=== PATIENT | female | born 1960 | race Caucasian/White ===

== ENCOUNTER 2016-08-10 04:28 | Emergency (ER) | payer OTHER ==
--- NOTE | 2016-08-10 08:36 | DIAGNOSTIC IMAGING REPORT ---
PROCEDURE: CT ABDOMEN/PELVIS W/O CONTRAST INDICATION: LEFT GROIN PAIN, initial encounter TECHNIQUE: Noncontrast axial images were obtained of the entire abdomen and pelvis with sagittal and coronal reformations. COMPARISON: None. FINDINGS: ABDOMEN: Lung base are clear. Heart size is normal. Liver, gallbladder, pancreas, spleen, adrenal glands and kidneys are unremarkable. Mild atherosclerosis of the aorta. Nonspecific bowel gas pattern. PELVIS: Moderate stool. Appendix not visualized. The uterus, adnexa and bladder are unremarkable. There is no pelvic mass, inflammatory changes or free fluid. Calcified injection granuloma in the right buttock. No evidence of a hernia. Moderate degenerative changes of the spine. IMPRESSION: 1. Moderate stool 2. Results discussed with Dr. Nicholas All CT scans at this facility use dose modulation, iterative reconstruction, and/or weight-based dosing when appropriate to reduce radiation dose to as low as reasonably achievable.
--- NOTE | 2016-08-10 08:40 | ED NURSING NOTES ---
Clinical Report - Nurses [facility] [address] [place] [address] 08/10/2016 4:30 Patient: KISHA WELLS TRIAGE Triage time 04:39. Acuity: LEVEL 3. Chief Complaint: PELVIC PAIN. ( Pt was taking high blood pressure meds and stopped taking them.). --04:48 Paramjit Catherine R.N. 04:39 08/10/16. BP: 158/109. HR: 99. RR: 22. O2 saturation: 100%. Temp: 97.9 F. Pain level now 03/05. --04:48 Paramjit Catherine R.N. Weight: 48.5 kg. Height/Length: 60 inches. BMI: 20.9. --04:39 Paramjit Catherine R.N. Medications None. --04:46 Paramjit Catherine R.N. Medication/allergy information source: the patient. --04:48 Paramjit Catherine R.N. Allergies No Known Drug Allergy. --04:46 Paramjit Catherine R.N. History Arrived by private vehicle. Historian: patient. Unaccompanied. Primary physician (Roque Gamez). This started today. ( Pt came in with left sided groin pain that radiates down the left leg and into the left shoulder. Pt stated she has had these pains in the past, but not to this extent. Pt does not have pain on palpation or weight bearing. There is no bruising and the pt denies any injury to the left leg.). Treatment ENVIRONMENTAL SPECIALIST: None. PAST MEDICAL HX: Immunizations: up-to-date. SOCIAL HX: Heavy tobacco smoker (cigarette)- less than 1 pack per day (30yrs). Occasional alcohol use; consumes beer occasionally. History of occasional drug use: marijuana. --04:48 Paramjit Catherine R.N. PROBLEMS: Hypertension. --04:47 Paramjit Catherine R.N. Interventions ID band on patient. To treatment room. --04:48 Paramjit Catherine R.N. PHYSICAL ASSESSMENT ( Pt is having left sided groin pain that radiates down the left leg. Pt is having left leg pain with a strong pedal pulse. The pedal pulse has been marked. Pt stated she is having pain about every 20 seconds. Pt is also saying it radiates up the left shoulder.). GENERAL / NEURO / PSYCH: Alert. Oriented X 4. Appears in pain and anxious. HEENT: Mucous membranes are pink. RESPIRATORY: Respirations not labored. Breath sounds within normal limits. CVS: Normal heart rate and rhythm. Capillary refill less than 2 seconds. GI / : Abdomen soft and nontender. Bowel sounds within normal limits. No vaginal bleeding. No vaginal discharge. No genital lesions noted. SKIN: Skin is warm and dry. --04:50 Paramjit Catherine R.N. NURSING PROGRESS NOTES Patient gowned. Head of bed elevated 30 degrees. Reassurance given. Two patient identifiers checked. Call light placed in reach. Side rails up x 1. Bed placed in lowest position. Brakes of bed on. ( MD is at bedside.). --04:50 Paramjit Catherine R.N. ( Son is at bedside. Pt has requested pain meds. MD informed.). --06:04 Paramjit Catherine R.N. 06:21 08/10/2016 Site #1 started via IV in the right antecubital space with an 20g angiocath, with aseptic technique and good blood return; one attempt. Blood drawn: rainbow set. Labeled in the presence of the patient and sent to the lab. Saline lock flushed with 10 mL saline. --06:21 Paramjit Catherine R.N. 06:24 08/10/2016 Morphine IVP 4 mg given over 1 minute(s) via site #1. Allergies verified, confirmed 5 rights and sedative warning given to the patient. IV patency established. IV site checked: no pain, redness, or swelling. IV flushed thoroughly pre- and post-medication administration. IVP given by RN. --06:24 Paramjit Catherine R.N. 06:25 08/10/16. BP: 156/109. HR: 85. RR: 22. O2 saturation: 98%. Pain level now 7/10. --06:26 Paramjit Catherine R.N. ( US is present in the room.). --07:05 Paramjit Catherine R.N. 08:12 08/10/16. BP: 124/74 (regular adult cuff) taken on the left arm, while sitting. HR: 84. RR: 18. O2 saturation: 100% on room air. Temp: 98.3 F. Pain level now: 8/10. Additional comments: Pain on left groin, intermittent sharp pain that takes breath away. --08:15 Anneliese Hernandez R.N. 08:15 08/10/16. ( Patient just returned from CT, she says pain is coming back, intermittently). --08:15 Anneliese Hernandez R.N. 08:21 08/10/2016 Morphine IVP Response: no adverse reaction pain is worsening. Symptoms have gotten worse. The patient feels worse. ED physician notified. --08:36 Anneliese Hernandez R.N. 08:53 08/10/2016 Morphine IVP 8 mg given over 2 minute(s) via site #1. Allergies verified, confirmed 5 rights and sedative warning given to the patient. IV patency established. IV site checked: no pain, redness, or swelling. IV flushed thoroughly pre- and post-medication administration. IVP given by RN. --08:53 Anneliese Hernandez R.N. 08:53 08/10/16. BP: 132/108 (regular adult cuff) taken on the left arm, while lying. HR: 86. RR: 18 (regular). O2 saturation: 97% on room air. Pain level now: 02/03. --08:54 Anneliese Hernandez R.N. 08:54 08/10/16. --08:54 Anneliese Hernandez R.N. 08:54 08/10/16. Patient gowned. Head of bed elevated. Reassurance given. Two patient identifiers checked. Call light placed in reach. Side rails up x 2. Bed placed in lowest position. Brakes of bed on. --08:54 Anneliese Hernandez R.N. 09:44 08/10/16. BP: 118/98 (regular adult cuff) taken on the left arm, while sitting. HR: 88. RR: 16 (regular). O2 saturation: 100% on room air. Temp: 98.4 F (oral). Pain level now: 12/03. --09:46 Anneliese Hernandez R.N. 09:46 08/10/16. ( Patients son on his way to give patient ride home. Pain has improved to a 12/03). --09:46 Anneliese Hernandez R.N. 09:47 08/10/2016 Morphine IVP Response: no adverse reaction pain is improving. Symptoms have improved the patient feels better. --09:47 Anneliese Hernandez R.N. 10:10 08/10/2016 Site #1 removed upon discharge. Bandaid applied. --10:10 Anneliese Hernandez R.N. DISPOSITION / DISCHARGE 10:08/10/16. Condition at departure: improved. No learning barriers present. Discharge instructions provided and reviewed with the patient. Reviewed medication(s) side effects information. Prescription(s) given to the patient. Patient verbalized understanding. Written instructions provided in Italian. No note given. The patient was discharged by the physician. She was discharged home and accompanied by son. She left the Emergency Department ambulatory and via private vehicle. Driving (son). --10:09 Anneliese Hernandez R.N. 10:04 08/10/16. BP: 140/77 (regular adult cuff) taken on the left arm, while sitting. HR: 71 (regular). RR: 16 (regular). O2 saturation: 98% on room air. Temp: 98.4 F (oral). Pain level now: 12/03. --10:09 Anneliese Hernandez R.N. Departure time: 10:Aug 10 2016. --10:25 Anneliese Hernandez R.N. Locked/Released at 08/10/2016 10:26 by Anneliese Hernandez R.N.
--- NOTE | 2016-08-10 08:40 | ED CLINICAL REPORT ---
Clinical Report - Physicians/Mid Levels [facility] [address] [place] [address] 08/10/2016 4:30 Patient: KISHA WELLS Arrived- By private vehicle. Historian- patient. HISTORY OF PRESENT ILLNESS Chief Complaint: LOWER EXTREMITY PAIN and ; ;(left). This started today and is still present (staying the same). It was abrupt in onset and has been intermittent but is not gone now. Severity is described as being severe. The quality is noted to be sharp and aching. No radiation. Not worsened by anything and relieved by anything. The patient has not had redness. No swelling, bladder dysfunction, bowel dysfunction, sensory loss or motor loss. ( reports no hx of DVT/PE). Patient denies an injury. Similar symptoms previously: None. Recent medical care: Not recently seen/assessed. REVIEW OF SYSTEMS No cough, chest pain, difficulty breathing, fever or skin rash. No neck pain, back pain, headache, blurred vision or sore throat. No abdominal pain. All systems otherwise negative, except as recorded above. PAST HISTORY See nurses notes. Medications: None. Allergies: No Known Drug Allergy. SOCIAL HISTORY Smoker- current status unknown. No alcohol use or drug use. No recent travel. Is a local resident. ADDITIONAL NOTES The nursing notes have been reviewed. PHYSICAL EXAM Vital Signs: 08/10/2016 09:44 BP: 118/98. HR: 88. RR: 16. O2 saturation: 100%. Temp: 98.4 F. Pain level now: 7/10. Oxygen saturation normal. Appearance: Alert. Oriented X3. No acute distress. Eyes: Pupils equal, round and reactive to light. Eyes normal inspection. ENT: Ears normal. Nose normal. Pharynx normal. Neck: Normal inspection. Neck supple. CVS: Normal heart rate and rhythm. Heart sounds normal. Respiratory: No respiratory distress. Breath sounds normal. Abdomen: Soft and nontender. No organomegaly. Back: Normal inspection. No tenderness. ROM normal. Skin: Skin intact. Skin warm and dry. Normal skin color. Normal skin turgor. Extremities: Lower extremities exhibit normal ROM. No lower extremity edema. Extremities otherwise negative. Gait: Normal gait. Neuro, Vascular and Tendons: No pulse deficit present. Neuro: Oriented X 3. No motor deficit. No sensory deficit. LABS, X-RAYS, AND EKG Abdominal CT: Normal liver, spleen and gallbladder. No mass. No free fluid. No bony lesion. Study type: abdomen and pelvis. Abdominal CT performed without contrast. The study was independently viewed by me, interpreted by the radiologist and discussed with the radiologist. Lower Extremity Sonography: Negative exam. No compression abnormality noted. Vessels patent. Augmented flow present. no DVT or dissection. Study type: utilized duplex and color Doppler sonography. The exam was performed by a educational technician. Laboratory Tests: CBC w Diff: (DEMETRIS: 08/10/2016 06:27) ( MsgRcvd 08/10/2016 06:47) Final results Test Result Flag Units (Reference) WHITE BLOOD COUNT 11.1 K/uL (4.5-11.5) RED BLOOD COUNT 4.31 M/uL (4.00-5.20) HEMOGLOBIN 14.1 gm/dL (12.0-16.0) HEMATOCRIT 41.4 % (36.0-46.0) MEAN CELL VOLUME 96 fL (80-100) MEAN CORPUSCULAR HGB 33 pg (26-34) MEAN CORPUSCULAR HGB CONC 34 g/dL (31-37) RED CELL DISTRIBUTION WIDTH 13.9 % (11.6-14.8) PLATELET COUNT 467 H K/uL (150-400) NEUTROPHIL % 73.5 % (50-75) LYMPH % 19.5 L % (25-40) MONO % 4.4 % (3-14) EOSINOPHIL % 2.0 % (0-4) BASOPHIL % 0.6 % (0-2) PT with INR: (DEMETRIS: 08/10/2016 06:27) ( MsgRcvd 08/10/2016 06:57) Final results Test Result Flag Units (Reference) INR 0.9 (0.8-1.2) Low Intensity Therapy: INR 1.5-2.0 PT range 18.5-23.1Mod.Intensity Therapy: INR 2.0-3.0 PT range 23.1-31.5High Intensity Therapy: INR 2.5-3.5 PT range 27.4-35.5High Intensity Therapy 2: INR 3.0-4.0 PT range 31.5-39.3 APTT 33 SECONDS (24-34) D-DIMER QUANTITATIVE < 0.27 L ug/mLFEU (0.27-0.52) The primary value of this quantitative assay relates toits negative predictive value (i.e. exclusion) of pulmonaryembolism/deep vein thrombosis/DIC.Elevated levels of d-dimer may also occur with:, age, cancer, inflammation, liver disease,post-op, infection, hematoma, coronary disease, peripheralarteriopathy, bleeding disorders and thrombolytic treatment.Results should be correlated with other clinical andradiological data.Testing Methodology: Latex Immunoassay CMP: (DEMETRIS: 08/10/2016 06:27) ( MsgRcvd 08/10/2016 06:58) Final results Test Result Flag Units (Reference) GLUCOSE 106 mg/dL (70-110) BUN 10 mg/dL (7-18) CREATININE 0.5 L mg/dL (0.6-1.3) Estimated GFR >60 mL/min Estimated GFR- >60 mL/min Note: Persistent reduction over 3 months in eGFR<60 mL/min/1.73 m2 defines CKD. Patients with eGFR values>=60 mL/min/1.73 m2 may also have CKD if evidence ofpersistent proteinuria. Additional information may be foundat www.[email or web address].org. SODIUM 141 mmol/L (136-145) POTASSIUM 4.1 mmol/L (3.5-5.1) CHLORIDE 105 mmol/L (98-107) CARBON DIOXIDE 25 mmol/L (21-32) CALCIUM 9.1 mg/dL (8.5-10.1) TOTAL PROTEIN 7.3 g/dL (6.4-8.2) ALBUMIN 4.2 g/dL (3.3-5.0) BILIRUBIN, TOTAL 0.3 mg/dL (0.0-1.0) ALKALINE PHOSPHATASE 66 U/L (46-116) AST (SGOT) 23 U/L (15-37) ALT (SGPT) 31 U/L (12-78) . PROGRESS AND PROCEDURES Course of Care: the patient is a pleasant 56 her old female presenting for evaluation of left looks from the pain. The patient's sinus symptoms are concerning for DVT or possibly dissection. The patient did not have any acute gross neurovascular compromise on examination. The medication and laboratory studies including ultrasound had been ordered. Patient is agreeable to the treatment and plan. Other considerations are urinary tract infectionand renal colic. Patient's workup does not show any acute abnormalities. White blood cell count is noted be normal at 11.1. Hemoglobin and hematocrit are within normal limits. D-dimer is also negative along with the patient's negative ultrasound. Did not feel patient has acute DVT. Because of the patient's normal d-dimer, would also make aortic dissection extremely unlikely. Patient is also as a normal arterial ultrasound. Patient was reevaluated and updated on her laboratory tests and imaging. Because of the patient's persistent pain, another dose of pain medication as well as a CT scan of the abdomen and pelvis were ordered. Patient be evaluated for any possible intra-abdominal causes for the patient's pain including hernia is wall. Would also be considered small bowel obstruction. Workup does not show any acute artery maladies. Mild/moderate amount of stool noted however no other acute abnormalities noted on patient's examination/workup and discussion with the patient in regards to her workup, diagnosis, and plan of care. Return precautions provided. All questions have been answered. The patient is agreeable to the treatment and plan. Patient be managed conservatively as an outpatient. Encourage patient to follow up with her primary care doctor. Disposition: Discharged. Condition: good. CLINICAL IMPRESSION Acute left thigh pain. Acute left lower quadrant abdominal pain. INSTRUCTIONS Warnings: GENERAL WARNINGS: Return or contact your physician immediately if your condition worsens or changes unexpectedly, if not improving as expected, or if other problems arise. Specifically return if pain, vomiting, bleeding, breathing difficulty or fever. Your Current Medications: CONTINUE TAKING THE FOLLOWING MEDICATIONS: None*. Prescription Medications: Percocet 5 mg/325 mg: take 1 tablet orally every 6 hours as needed for pain. Dispense twelve (12). No refill. Substitution is permissible. (recheck today's concerns) Follow-up: Return to the emergency department as needed. Follow up with your doctor in three days. Reason for referral: recheck today's concerns. Summary of care provided to patient via paper. Screening today revealed the patient's blood pressure to be in the normal range. The patient should follow up with a primary care provider for blood pressure management. Understanding of the discharge instructions verbalized by patient. (Electronically signed by Derrick Nicholas Dr. 08/10/2016 10:02)
--- NOTE | 2016-08-10 08:41 | ED ORDER SUMMARY ---
..... Patient: KISHA WELLS OrderSheet [facility] VisitID: [id number] [address] [place] [address] 56y, F Registration Date/Time: 08/10/2016 ORDER SHEET Weight: 48.5 kg Allergies: No Known Drug Allergy GENERAL ORDERS: US Venous Left Urgent (06:13 08/10/2016 Hari Miller) (Ack 6:18 AMcQuoid ER Tech1) (7:04 TLewis R.N.) CBC w Diff Urgent (06:14 08/10/2016 Hari Miller) (Ack 6:18 AMcQuoid ER Tech1) (6:21 TLewis R.N.) CMP Urgent (06:14 08/10/2016 Hari Miller) (Ack 6:18 AMcQuoid ER Tech1) (6:21 TLewis R.N.) PT with INR Urgent (06:14 08/10/2016 Hari Miller) (Ack 6:18 AMcQuoid ER Tech1) (6:21 TLewis R.N.) PTT Urgent (06:14 08/10/2016 Hari Miller) (Ack 6:18 AMcQuoid ER Tech1) (6:21 TLewis R.N.) D-Dimer Urgent (06:14 08/10/2016 Hari Miller) (Ack 6:18 AMcQuoid ER Tech1) (6:21 TLewis R.N.) US Art Low Ext Doppler Left Urgent (07:02 08/10/2016 Hari Miller) (7:04 TLewis R.N.) CT Abd/Pel wo Cont Urgent (07:34 08/10/2016 Hari Miller) (Ack 8:03 Twan) (8:12 JSanders R.N.) UA-Culture if indicated Urgent (07:34 08/10/2016 Hari Miller) (Ack 8:03 Twan) (8:12 JSanders R.N.) MEDICATION ORDERS: IV FLUIDS: Morphine IV 4 mg (HIGH ALERT MEDICATION, NOW) (04:46 08/10/2016 Hari Miller) (Cancelled: incorrect input4:[address] Morphine IV 4 mg (HIGH ALERT MEDICATION, NOW) (06:14 08/10/2016 Hari Miller) (6:24 Tereso R.N.) IV Saline Lock (06:14 08/10/2016 Hari Miller) (6:21 Tereso R.N.) Morphine IV 8 mg (HIGH ALERT MEDICATION, NOW) (08:36 08/10/2016 Hari Miller) (8:53 Gracy R.NVirgilio) ORDER SHEET NOTES: [Electronically signed by Derrick Nicholas Dr. (10:02 08/10/2016)] [Electronically signed by Anneliese Hernandez R.N. (10:08/10/2016)] [Electronically locked/signed by Anneliese Hernandez R.N. (10:08/10/2016)]
--- NOTE | 2016-08-10 08:41 | ED ORDER SUMMARY ---
..... Patient: KISHA WELLS OrderSheet [facility] VisitID: [id number] [address] [place] [address] 56y, F Registration Date/Time: 08/10/2016 ORDER SHEET Weight: 48.5 kg Allergies: No Known Drug Allergy GENERAL ORDERS: US Venous Left Urgent (06:13 08/10/2016 Hari Miller) (Ack 6:18 AMcQuoid ER Tech1) (7:04 TLewis R.N.) CBC w Diff Urgent (06:14 08/10/2016 Hari Miller) (Ack 6:18 AMcQuoid ER Tech1) (6:21 TLewis R.N.) CMP Urgent (06:14 08/10/2016 Hari Miller) (Ack 6:18 AMcQuoid ER Tech1) (6:21 TLewis R.N.) PT with INR Urgent (06:14 08/10/2016 Hari Miller) (Ack 6:18 AMcQuoid ER Tech1) (6:21 TLewis R.N.) PTT Urgent (06:14 08/10/2016 Hari Miller) (Ack 6:18 AMcQuoid ER Tech1) (6:21 TLewis R.N.) D-Dimer Urgent (06:14 08/10/2016 Hari Miller) (Ack 6:18 AMcQuoid ER Tech1) (6:21 TLewis R.N.) US Art Low Ext Doppler Left Urgent (07:02 08/10/2016 Hari Miller) (7:04 TLewis R.N.) CT Abd/Pel wo Cont Urgent (07:34 08/10/2016 Hari Miller) (Ack 8:03 Twan) (8:12 JSanders R.N.) UA-Culture if indicated Urgent (07:34 08/10/2016 Hari Miller) (Ack 8:03 Twan) (8:12 JSanders R.N.) MEDICATION ORDERS: IV FLUIDS: Morphine IV 4 mg (HIGH ALERT MEDICATION, NOW) (04:46 08/10/2016 Hari Miller) (Cancelled: incorrect input4:[address] Morphine IV 4 mg (HIGH ALERT MEDICATION, NOW) (06:14 08/10/2016 Hari Miller) (6:24 Tereso R.N.) IV Saline Lock (06:14 08/10/2016 Hari Miller) (6:21 Tereso R.N.) Morphine IV 8 mg (HIGH ALERT MEDICATION, NOW) (08:36 08/10/2016 Hari Miller) (8:53 Gracy R.NVirgilio) ORDER SHEET NOTES: [Electronically signed by Derrick Nicholas Dr. (10:02 08/10/2016)] [Electronically signed by Anneliese Hernandez R.N. (10:08/10/2016)] [Electronically locked/signed by Anneliese Hernandez R.N. (10:08/10/2016)]
--- NOTE | 2016-08-10 09:07 | DIAGNOSTIC IMAGING REPORT ---
PROCEDURE: US VENOUS - LEFT EXT INDICATION: Left groin and thigh pain, initial encounter TECHNIQUE: Duplex sonography of the deep venous system in the left lower extremity was performed. Compression and augmentation techniques were used. COMPARISON: None. FINDINGS: Normal compression of the greater saphenous, common femoral, superficial femoral, popliteal, peroneal, and posterior tibial veins. Normal augmentation. There is no evidence of superficial or deep venous thrombosis. IMPRESSION: 1. Negative venous ultrasound of the left lower extremity.
--- NOTE | 2016-08-10 09:15 | DIAGNOSTIC IMAGING REPORT ---
PROCEDURE: US ART LOWER EXT DOPPLER-LEFT INDICATION: PAIN IN LIMB TECHNIQUE: Color Doppler duplex imaging of the left lower extremity was performed. COMPARISON: None. FINDINGS: VESSELS: Minimal plaque. Normal triphasic wave form from the external iliac artery to the distal SFA and biphasic wave form distally to the ankle. LOWER EXTREMITY PEAK SYSTOLIC VELOCITIES: External iliac: 92 cm/second. Common femoral artery: 49 cm/second. Profunda femoral artery: 42 cm/second. Proximal superficial femoral 80 cm/second. Distal superficial femoral artery: 69 cm/second. Popliteal artery: 45 cm/second. Proximal posterior tibial artery: 39 cm/second. Proximal anterior tibial artery: 46 cm/second. Distal posterior tibial artery: 50 cm/second. Dorsalis pedis artery: 34 cm/second. IMPRESSION: 1. Minimal plaque formation without evidence of a high-grade stenosis.
--- NOTE | 2016-08-10 10:26 | ED DISCHARGE INSTRUCTIONS ---
Patient: KISHA WELLS General Instructions [facility] VisitID: [id number] [place] [address] 56y, F Registration Date/Time: 08/10/2016 Acute left thigh pain. Acute left lower quadrant abdominal pain. INSTRUCTIONS Warnings: GENERAL WARNINGS: Return or contact your physician immediately if your condition worsens or changes unexpectedly, if not improving as expected, or if other problems arise. Specifically return if pain, vomiting, bleeding, breathing difficulty or fever. Your Current Medications: CONTINUE TAKING THE FOLLOWING MEDICATIONS: None*. Prescription Medications: Percocet 5 mg/325 mg: take 1 tablet orally every 6 hours as needed for pain. Dispense twelve (12). No refill. Substitution is permissible. (recheck today's concerns) Follow-up: Return to the emergency department as needed. Follow up with your doctor in three days. Reason for referral: recheck today's concerns. Summary of care provided to patient via paper. Screening today revealed the patient's blood pressure to be in the normal range. The patient should follow up with a primary care provider for blood pressure management. Understanding of the discharge instructions verbalized by patient. ADDITIONAL INFORMATION Myofascial Pain Syndrome: Fibrositis Your pain is caused by a state of chronic muscle tension. This condition is called by various names: myofascial pain, fibrositis and trigger point pain. This can also be due to mechanical stress (such as working at a computer terminal for long periods; or work that requires repetitive motions of the arms or hands) or emotional stress (such as problems on the job or in your personal life). Sometimes there is no obvious cause. The pain can occur in the area of the muscle spasm or at a site distant to it. For example, spasm of a neck muscle can cause headache. Spasm of the muscle near the shoulder blade can cause pain shooting down the arm. Home Care: Try to identify the factors that may be causing your problem and change them: If you feel thatemotional stressis a cause of your pain, learn methods to deal more effectively with the stress in your life. These may include regular exercise, muscle relaxation techniques, meditation or simply taking time out for yourself. Consult your doctor or go to a local bookstore and review the many books and tapes available on the subject of stress reduction. If you feel that physical stress is a cause for your pain, try to modify any poor work habits. You may use acetaminophen (Tylenol) or ibuprofen (Motrin, Advil) to control pain, unless another medicine was prescribed. [NOTE: If you have chronic liver or kidney disease or ever had a stomach ulcer or GI bleeding, talk with your doctor before using these medicines.] The use of heat to the muscle (hot compress or heating pad) will be helpful to reduce muscle spasm. Some persons get relief with ice packs. Apply an ice pack (crushed or cubed ice in a plastic bag, wrapped in a towel) for 20 minutes at a time as needed. Use the method that feels best to you. Massaging the trigger point and stretching out the muscleare an important parts of prevention and treatment. Trigger point massage can be done by first applying heat to the area to warm and prepare the muscle. Have someone apply steady thumb pressure directly on the knot in the muscle (the most tender point) for 30 seconds. Release the pressure, then massage the surrounding muscle. Repeat the process, applying more pressure to the trigger point each time. Do this up to the limit of pain. With each treatment, the trigger point should become less tender and the pain should decrease. You can apply local pressure to trigger points in the back by lying on the floor with a tennis ball under the trigger point. Follow Up with your doctor as advised or if not improving within the next week. It may be necessary for you to receive physical therapy if you do not respond to home treatment alone. Get Prompt Medical Attention if any of the following occur: If your trigger point is in the chest muscles, observe for pain that becomes more severe, lasts longer, or spreads into your shoulder/arm, neck or back; you develop trouble breathing, sweating, nausea or vomiting in association with chest pain If you develop weakness or numbness in an extremity If your pain worsens, regardless of its location Abdominal Pain, Unknown Cause (Female) The exact cause of your abdominal (stomach) pain is not certain. This does not mean that this is something to worry about, or the right tests were not done. Everyone likes to know the exact cause of the problem, but sometimes with abdominal pain, there is no clear-cut cause, and this could be a good thing. The good news is that your symptoms can be treated, and you will feel better. Your condition does not seem serious now; however, sometimes the signs of a serious problem may take more time to appear. For this reason,it is important for you to watch for any new symptoms, problems,or worsening of your condition. Over the next few days, the abdominal pain may come and go, or be continuous. Other common symptoms can include nausea and vomiting. Sometimes it can be difficult to tell if you feel nauseous, you may just feel bad and not associate that feeling with nausea. Constipation, diarrhea, and a fever may go along with the pain. The pain may continue even if treated correctly over the following days. Depending on how things go, sometimes the cause can become clear and may require further or different treatment. Additional evaluations, medications, or tests may be needed. Home care Your health care provider may prescribe medications for pain, symptoms, or an infection. Follow the health care provider's instructions for taking these medications. General care Rest until your next exam. No strenuous activities. Try to find positions that ease discomfort. A small pillow placed on the abdomen may help relieve pain. Something warm on your abdomen (such as a heating pad) may help, but be careful not to burn yourself. Diet Do not force yourself to eat, especially if having cramps, vomiting, or diarrhea. Water is important so you do not get dehydrated. Soup may also be good. Sports drinks may also help, especially if they are not too acidic. Make sure you don't drink sugary drinks as this can make things worse. Take liquids in small amounts. Do not guzzle them. Caffeine sometimes makes the pain and cramping worse. Avoid dairy products if you have vomiting or diarrhea. Don't eat large amounts at a time. Wait a few minutes between bites. Eat a diet low in fiber (called a low-residue diet). Foods allowed include refined breads, white rice, fruit and vegetable juices without pulp, tender meats. These foods will pass more easily through the intestine. Avoid whole-grain foods, whole fruits and vegetables, meats, seeds and nuts, fried or fatty foods, dairy, alcohol and spicy foods until your symptoms go away. Follow-up care Follow up with your health care provider as instructed, or if your pain does not begin to improve in the next 24 hours. When to seek medical care Seek prompt medical care if any of the following occur: Pain gets worse or moves to the right lower abdomen New or worsening vomiting or diarrhea Swelling of the abdomen Unable to pass stool for more than three days Fever of 100.4F (38C) or higher, or as directed by your healthcare provider. Blood in vomit or bowel movements (dark red or black color) Jaundice (yellow color of eyes and skin) Weakness, dizziness Chest, arm, back, neck or jaw pain Unexpected vaginal bleeding or missed period Call 911 Call emergency services if any of the following occur: Trouble breathing Confusion Fainting or loss of consciousness Rapid heart rate Seizure Oxycodone Hydrochloride, Acetaminophen Oral tablet What is this medicine? ACETAMINOPHEN; OXYCODONE (a set a GOKUL rachna fen; ox i KOE done) is a pain reliever. It is used to treat mild to moderate pain. How should I use this medicine? Take this medicine by mouth with a full glass of water. Follow the directions on the prescription label. Take your medicine at regular intervals. Do not take your medicine more often than directed. Talk to your dry chain worker regarding the use of this medicine in children. Special care may be needed. Patients over 65 years old may have a stronger reaction and need a smaller dose. What side effects may I notice from receiving this medicine? Side effects that you should report to your doctor or health healthcare administrative assistant as soon as possible: allergic reactions like skin rash, itching or hives, swelling of the face, lips, or tongue breathing difficulties, wheezing confusion light headedness or fainting spells severe stomach pain yellowing of the skin or the whites of the eyes Side effects that usually do not require medical attention (report to your doctor or health healthcare administrative assistant if they continue or are bothersome): dizziness drowsiness nausea vomiting What may interact with this medicine? alcohol antihistamines barbiturates like amobarbital, butalbital, butabarbital, methohexital, pentobarbital, phenobarbital, thiopental, and secobarbital benztropine drugs for bladder problems like solifenacin, trospium, oxybutynin, tolterodine, hyoscyamine, and methscopolamine drugs for breathing problems like ipratropium and tiotropium drugs for certain stomach or intestine problems like propantheline, homatropine methylbromide, glycopyrrolate, atropine, belladonna, and dicyclomine general anesthetics like etomidate, ketamine, nitrous oxide, propofol, desflurane, enflurane, halothane, isoflurane, and sevoflurane medicines for depression, anxiety, or psychotic disturbances medicines for sleep muscle relaxants naltrexone narcotic medicines (opiates) for pain phenothiazines like perphenazine, thioridazine, chlorpromazine, mesoridazine, fluphenazine, prochlorperazine, promazine, and trifluoperazine scopolamine tramadol trihexyphenidyl What if I miss a dose? If you miss a dose, take it as soon as you can. If it is almost time for your next dose, take only that dose. Do not take double or extra doses. Where should I keep my medicine? Keep out of the reach of children. This medicine can be abused. Keep your medicine in a safe place to protect it from theft. Do not share this medicine with anyone. Selling or giving away this medicine is dangerous and against the law. Store at room temperature between 20 and 25 degrees C (68 and 77 degrees F). Keep container tightly closed. Protect from light. This medicine may cause accidental overdose and if it is taken by other adults, children, or pets. Flush any unused medicine down the toilet to reduce the chance of harm. Do not use the medicine after the expiration date. What should I tell my health care provider before I take this medicine? They need to know if you have any of these conditions: brain tumor Crohn's disease, inflammatory bowel disease, or ulcerative colitis drink more than 3 alcohol containing drinks per day drug abuse or addiction head injury heart or circulation problems kidney disease or problems going to the bathroom liver disease lung disease, asthma, or breathing problems an unusual or allergic reaction to acetaminophen, oxycodone, other opioid analgesics, other medicines, foods, dyes, or preservatives or trying to get breast-feeding What should I watch for while using this medicine? Tell your doctor or health healthcare administrative assistant if your pain does not go away, if it gets worse, or if you have new or a different type of pain. You may develop tolerance to the medicine. Tolerance means that you will need a higher dose of the medication for pain relief. Tolerance is normal and is expected if you take this medicine for a long time. Do not suddenly stop taking your medicine because you may develop a severe reaction. Your body becomes used to the medicine. This does NOT mean you are addicted. Addiction is a behavior related to getting and using a drug for a non-medical reason. If you have pain, you have a medical reason to take pain medicine. Your doctor will tell you how much medicine to take. If your doctor wants you to stop the medicine, the dose will be slowly lowered over time to avoid any side effects. You may get drowsy or dizzy. Do not drive, use machinery, or do anything that needs mental alertness until you know how this medicine affects you. Do not stand or sit up quickly, especially if you are an older patient. This reduces the risk of dizzy or fainting spells. Alcohol may interfere with the effect of this medicine. Avoid alcoholic drinks. There are different types of narcotic medicines (opiates) for pain. If you take more than one type at the same time, you may have more side effects. Give your health care provider a list of all medicines you use. Your doctor will tell you how much medicine to take. Do not take more medicine than directed. Call emergency for help if you have problems breathing. The medicine will cause constipation. Try to have a bowel movement at least every 2 to 3 days. If you do not have a bowel movement for 3 days, call your doctor or health healthcare administrative assistant. Do not take Tylenol (acetaminophen) or medicines that have acetaminophen with this medicine. Too much acetaminophen can be very dangerous. Many nonprescription medicines contain acetaminophen. Always read the labels carefully to avoid taking more acetaminophen. You have been given the following additional information: Myofascial Pain Syndrome Abdominal Pain, Unknown Cause, (Female) Oxycodone Hydrochloride, Acetaminophen Oral tablet (Electronically signed by Derrick Nicholas Dr. 08/10/2016 10:02)
--- NOTE | 2016-08-10 10:27 | ED MAR SUMMARY ---
..... Medication Administration Record [facility] [address] [place] [address] Patient: KISHA WELLS Visit ID: [id number] 56y, F Weight: 48.5 kg Height/Length: 60 in BMI: 20.9 ALLERGIES: No Known Drug Allergy Given 06:24 08/10/2016 Paramjit Catherine R.N. Medication Administered: MORPHINE [IVP], Dose: 4 mg IVP over 1 minute(s), Site: #1 right AC. Medication Ordered: Morphine IV 4 mg (HIGH ALERT MEDICATION, NOW). Given 08:53 08/10/2016 Anneliese Hernandez R.N. Medication Administered: MORPHINE [IVP], Dose: 8 mg IVP over 2 minute(s), Site: #1 right AC. Medication Ordered: Morphine IV 8 mg (HIGH ALERT MEDICATION, NOW).
--- NOTE | 2016-08-10 10:27 | ED MED RECONCILIATION SUMMARY ---
Patient: KISHA WELLS Medication Reconciliation Report [facility] VisitID: [id number] [address] [place] [address] 56y, F Registration Date/Time: 08/10/2016 Weight: 48.5 kg Height/Length: 60 in. BMI: 20.9 ALLERGIES: No Known Drug Allergy The patient's Home Medications are listed below: NONE. The source(s) of the original Home Medication information: patient The following Medications were given to the patient in the Emergency Department: Morphine [IVP] IVP 4 mg, administered: 08/10/2016 6:24:00 AM Morphine [IVP] IVP 8 mg, administered: 08/10/2016 8:53:00 AM The following Medications were prescribed to the patient: Percocet 5 mg/325 mg: take 1 tablet orally every 6 hours as needed for pain. Dispense twelve (12). No refill. Substitution is permissible.(recheck today's concerns) -- Derrick Nicholas Dr.
--- NOTE | 2016-08-10 10:27 | ED MED RECONCILIATION SUMMARY ---
Patient: KISHA WELLS Medication Reconciliation Report [facility] VisitID: [id number] [address] [place] [address] 56y, F Registration Date/Time: 08/10/2016 Weight: 48.5 kg Height/Length: 60 in. BMI: 20.9 ALLERGIES: No Known Drug Allergy The patient's Home Medications are listed below: NONE. The source(s) of the original Home Medication information: patient The following Medications were given to the patient in the Emergency Department: Morphine [IVP] IVP 4 mg, administered: 08/10/2016 6:24:00 AM Morphine [IVP] IVP 8 mg, administered: 08/10/2016 8:53:00 AM The following Medications were prescribed to the patient: Percocet 5 mg/325 mg: take 1 tablet orally every 6 hours as needed for pain. Dispense twelve (12). No refill. Substitution is permissible.(recheck today's concerns) -- Derrick Nicholas Dr.
--- NOTE | 2016-08-10 10:27 | ED MAR SUMMARY ---
..... Medication Administration Record [facility] [address] [place] [address] Patient: KISHA WELLS Visit ID: [id number] 56y, F Weight: 48.5 kg Height/Length: 60 in BMI: 20.9 ALLERGIES: No Known Drug Allergy Given 06:24 08/10/2016 Paramjit Catherine R.N. Medication Administered: MORPHINE [IVP], Dose: 4 mg IVP over 1 minute(s), Site: #1 right AC. Medication Ordered: Morphine IV 4 mg (HIGH ALERT MEDICATION, NOW). Given 08:53 08/10/2016 Anneliese Hernandez R.N. Medication Administered: MORPHINE [IVP], Dose: 8 mg IVP over 2 minute(s), Site: #1 right AC. Medication Ordered: Morphine IV 8 mg (HIGH ALERT MEDICATION, NOW).
== END 2016-08-10 10:25 | disposition home or self-care (01) ==
LOC: ED SRH 04:28
DX: M79.652 Pain in left thigh (principal); R10.32 Left lower quadrant pain